=== PATIENT | male | born 1940 | race Caucasian/White ===

== ENCOUNTER 2019-05-06 08:59 | Outpatient (CLI) | payer MEDICARE, BC, SELFPAY ==
--- NOTE | 2019-05-06 09:37 | ECG_ITS ---
NAME OF STUDY: LEXISCAN SESTAMIBI STRESS TEST INDICATION: AFIB, PROCEDURE: At the baseline, the EKG revealed atrial fibrillation with a controlled ventricular response rate. Poor R wave progression. The baseline blood pressure was 144/103 mm Hg with a heart rate of 61 beats/min. Lexiscan was infused over a period of 20 seconds. A total of 0.4 milligrams of Lexiscan was infused. The stress phase was continued for a total of 5 minutes. Heart rate at the end of the stress phase was 66 with a blood pressure 158/102. The EKG at the peak infusion revealed no significant changes. Sestamibi was injected 20 seconds after the Lexiscan infusion. Blood pressure at the end of the recovery phase was 158/101 with a heart rate of 72 per minute. CONCLUSION: 1. No significant EKG changes with the LexiScan infusion 2. No LexiScan induced chest pain or cardiac arrhythmia 3. Normal blood pressure and heart rate response 4. Sestamibi/sestamibi perfusion scan pending; see separate report. Electronically Signed On 05-06-2019 19:04:51 COPYRIGHT MANAGER by Anival Salgado M.D. [id number]
--- NOTE | 2019-05-06 09:37 | NMCV_ITS ---
NM jose elias perf SPECT r/s* [id number] Martín Coburn Age: 78 Gender: M : 1940 Exam Date: 05/06/2019 10:03 Ordering Phys: Radha MonrealP XX Technologist: GWEN Ramesh Exam Location: [facility] Indications: A-fib STRESS TEST [facility] IMAGE PROTOCOL Rest/Stress 1 Lexiscan Day Radiopharmaceutical Dose (mCi) Administration Site Administered by Rest: Tc-99m 10.7 IV GWEN Ramesh Sestamibi Stress:Tc-99m 31.5 IV GWEN Ramesh Sestamibi Rest: 06-May-2019 60 Discovery 630 Stress: 06-May-2019 60 Discovery 630 0.4mg Lexiscan. Images obtained in supine and prone position. 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 FUNCTIONAL RESULTS (calculated via Gated SPECT) Stress Image LV EF (%): 72 Stress EDV (mL):67 TID: 0.93 Stress ESV (mL):19 Rest Image LV EF (%): 72 FUNCTIONAL FINDINGS: There is normal left ventricular systolic function. 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 Jailyn Vanegas MD (Electronically Signed) Final Date: 06 May 2019 14:44 S
[2019-05-06 09:40] VITALS: BMI 25.7
[2019-05-06] MEDS: regadenoson 0.4 Mg/5 ml Syringe IVP (11:12)
[2019-05-06 11:27] VITALS: BP 159/101; PULSE 78
--- NOTE | 2019-05-06 12:45 | USCV_ITS ---
Martín Coburn Age: 78 Gender: M : 1940 Exam Date: 05/06/2019 11:28 Ordering Phys: Radha Monreal TYPEWRITER ALIGNER XX Technologist: Ana Ling Exam Location: [facility] [place] Indication: AFIB BP: 149 / 93 HR: 73 Rhythm: Atrial fibrillation Technical Quality: Adequate MEASUREMENTS (Male / Female) Normal Values 2D ECHO LV Diastolic Diameter PLAX 4.4 cm 4.2 - 5.9 / 3.9 - 5.3 cm LV Systolic Diameter PLAX 2.4 cm LV Chamber Size 4.3 cm IVS Diastolic Thickness 1.0 cm 0.6 - 1.0 / 0.6 - 0.9 cm IVS Systolic Thickness 1.3 cm LVPW Diastolic Thickness 0.9 cm 0.6 - 1.0 / 0.6 - 0.9 cm LVPW Systolic Thickness 1.2 cm RV Chamber Size 4.2 cm LVOT Diameter 2.0 cm LV Ejection Fraction 2D Teich 77.3 % LV Ejection Fraction MOD 2C 65.8 % LV Ejection Fraction 2C AL 64.6 % LA Diameter 3.6 cm LA Width 3.7 cm LA Height 5.3 cm RA Width 5.1 cm RA Height 6.1 cm M-MODE LV Diastolic Diameter MM 5.0 cm 4.2 - 5.9 / 3.9 - 5.3 cm LV Systolic Diameter MM 2.8 cm LV Ejection Fraction MM Teich 75.5 % IVS Diastolic Thickness MM 0.4 cm 0.6 - 1.0 / 0.6 - 0.9 cm IVS Systolic Thickness MM 1.0 cm LVPW Diastolic Thickness MM 0.7 cm 0.6 - 1.0 / 0.6 - 0.9 cm LVPW Systolic Thickness MM 1.5 cm RV Diastolic Diameter MM 2.6 cm Aortic Annulus Diameter 3.0 cm LA Ao Ratio MM 1.2 MV E Point Septal Separation 0.1 cm DOPPLER AV Peak Velocity 147.0 cm/s LVOT Peak Velocity 79.0 cm/s AV Area Cont Eq vti 1.8 cm squared AV Area Cont Eq pk 1.7 cm squared MV E' Velocity 7.0 cm/s TR Peak Velocity 277.4 cm/s TR Peak Gradient 30.8 mmHg TR Mean Velocity 221.6 cm/s TR Mean Gradient 21.2 mmHg TR Velocity Time Integral 90.5 cm TV Peak E Velocity 72.0 cm/s Right Atrial Pressure 3.0 mmHg Pulmonary Artery Systolic Pressu 33.8 mmHg PV Peak Velocity 66.0 cm/s FINDINGS Left Ventricle Normal left ventricular cavity size. Normal left ventricular systolic function. No regional wall motion abnormalities. Left ventricular ejection fraction is estimated at 65 %. In the presence of atrial fibrillation diastolic function cannot be assessed accurately. Right Ventricle The right ventricle is normal in size and function. Right Atrium The right atrium is normal in size. Left Atrium The left atrium is normal in size. Mitral Valve Thickened mitral valve. No mitral valve stenosis. Mild-moderate mitral valve regurgitation. Aortic Valve Moderate aortic valve calcification. Mild aortic valve stenosis, mean gradient 4.2 mmHg, GUANACO 1.8 cm squared. Trace aortic valve regurgitation. Tricuspid Valve Moderate tricuspid valve regurgitation. Pulmonic Valve Mild pulmonary valve regurgitation. Pericardium Normal pericardium without effusion. Aorta Normal ascending aorta dimension. CONCLUSIONS 1-Normal left ventricular cavity size. Normal left ventricular systolic function. No regional wall motion abnormalities. Left ventricular ejection fraction is estimated at 65 %. In the presence of atrial fibrillation diastolic function cannot be assessed accurately. 2-Moderate aortic valve calcification. Mild aortic valve stenosis, mean gradient 4.2 mmHg, GUANACO 1.8 cm squared. Trace aortic valve regurgitation. 3-Thickened mitral valve. No mitral valve stenosis. Mild- moderate mitral valve regurgitation. 4-There is no pericardial effusion. 5-Pulmonary artery systolic pressure is within normal limits. 6-Right atrial pressure is around 5 mm of mercury. 7-There are no prior echocardiogram studies to compare. Jailyn Vanegas MD (Electronically Signed) Final Date: 06 May 2019 18:01 S
== END 2019-05-06 09:00 | disposition home or self-care (01) ==
LOC: CDL 09:05
PROVIDERS: Family Provider Nurse Practitioner Family; PCP Nurse Practitioner Family; Visit Provider Nurse Practitioner Family
DX: I48.91 Unspecified atrial fibrillation (principal)
CPT/HCPCS: 78452; 93017; 93306; A9500; J2785

== ENCOUNTER 2021-07-14 12:58 | Outpatient (CLI) | payer MEDICARE, OTHER, SELFPAY ==
--- NOTE | 2021-07-14 13:56 | CT_ITS ---
WS: [id number] CT HEAD NONCONTRAST HISTORY: LEFT FACIAL NUMBNESS TECHNIQUE: Contiguous axial imaging performed through the brain in 2.5 mm imaging. Bone and soft tiss ue windows. Sagittal and coronal reformats reviewed. All CT scans at [facility] use at least one of these dose optimization techniques: automated exposure control; mA and/or kV adjustment per pa tient size (includes targeted exams where dose is matched to clinical indication); or iterative recon struction. DLP: 1042.98 mGy.cm COMPARISON: None available. No acute intracranial hemorrhage, midline shift or mass effect. Mild bilateral cerebral and cerebellar atrophy. Mild small vessel ischemic changes. No prior infarct. Ventricles: Normal size with no hydrocephalus. No inferior displacement of cerebellar tonsils. Heavy calcification within the intracranial carotid a rteries. Paranasal sinuses: As visualized are clear. Mastoid air cells: Well pneumatized. Calvarium and scalp: No skull fracture. Lucencies in the occipital bone without destruction of the co rtex. No change since 12/22/2018. CT/CT head wo con* [id number] IMPRESSION: 1. No acute intracranial hemorrhage or edema. 2. Mild cerebral and cerebellar atrophy with small vessel ischemic disease.
== END 2021-07-14 12:59 | disposition home or self-care (01) ==
LOC: CT 13:00
PROVIDERS: PCP Nurse Practitioner Family; Visit Provider Nurse Practitioner Family
DX: R20.0 Anesthesia of skin (principal); G31.9 Degenerative disease of nervous system, unspecified
CPT/HCPCS: 70450

== ENCOUNTER → 2021-07-25 10:53 | Outpatient (BNVA) | payer MEDICARE, OTHER, SELFPAY | PROVIDERS: PCP Nurse Practitioner Family; Visit Provider Internal Medicine Cardiovascular Disease | DX: R94.39 Abnormal result of other cardiovascular function study (principal); I48.91 Unspecified atrial fibrillation; E78.2 Mixed hyperlipidemia; I10 Essential (primary) hypertension; Z79.82 Long term (current) use of aspirin | CPT/HCPCS: 99214 ==

== ENCOUNTER → 2022-01-23 09:50 | Outpatient (BNVA) | payer MEDICARE, OTHER, SELFPAY | PROVIDERS: PCP Nurse Practitioner Family; Visit Provider Internal Medicine Cardiovascular Disease | DX: I48.91 Unspecified atrial fibrillation (principal); R94.39 Abnormal result of other cardiovascular function study; E78.2 Mixed hyperlipidemia; I10 Essential (primary) hypertension; I35.0 Nonrheumatic aortic (valve) stenosis | CPT/HCPCS: 99213; 99214 ==

== ENCOUNTER → 2022-07-31 09:47 | Outpatient (BNVA) | payer MEDICARE, OTHER, SELFPAY | PROVIDERS: PCP Nurse Practitioner Family; Visit Provider Internal Medicine Cardiovascular Disease | DX: I35.0 Nonrheumatic aortic (valve) stenosis (principal); R94.39 Abnormal result of other cardiovascular function study; E78.2 Mixed hyperlipidemia; I10 Essential (primary) hypertension; I48.91 Unspecified atrial fibrillation; Z79.82 Long term (current) use of aspirin | CPT/HCPCS: 99214 ==

== ENCOUNTER → 2022-08-28 10:35 | Outpatient (BNVA) | payer MEDICARE, OTHER, SELFPAY | PROVIDERS: PCP Nurse Practitioner Family; Visit Provider Nurse Practitioner Family | DX: S50.912A Unspecified superficial injury of left forearm, initial encounter (principal); X58.XXXA Exposure to other specified factors, initial encounter; L57.0 Actinic keratosis; L82.1 Other seborrheic keratosis; L85.3 Xerosis cutis; L82.0 Inflamed seborrheic keratosis; D22.5 Melanocytic nevi of trunk; L81.4 Other melanin hyperpigmentation | CPT/HCPCS: 17000; 17003; 99213 ==

== ENCOUNTER → 2023-02-19 09:41 | Outpatient (BNVA) | payer MEDICARE, OTHER, SELFPAY | PROVIDERS: PCP Nurse Practitioner Family; Visit Provider Internal Medicine Cardiovascular Disease | DX: I35.0 Nonrheumatic aortic (valve) stenosis (principal); R94.39 Abnormal result of other cardiovascular function study; E78.2 Mixed hyperlipidemia; I10 Essential (primary) hypertension; I48.91 Unspecified atrial fibrillation | CPT/HCPCS: 99214 ==

== ENCOUNTER → 2023-02-27 09:33 | Outpatient (BNVA) | payer MEDICARE, OTHER, SELFPAY | PROVIDERS: PCP Nurse Practitioner Family; Visit Provider Specialist | DX: M65.322 Trigger finger, left index finger; M16.11 Unilateral primary osteoarthritis, right hip | CPT/HCPCS: 73130; 73502; 99205 ==

== ENCOUNTER → 2023-03-05 12:59 | Outpatient (BNVA) | payer MEDICARE, OTHER, SELFPAY | PROVIDERS: PCP Nurse Practitioner Family; Visit Provider Nurse Practitioner Family | DX: L57.0 Actinic keratosis (principal); L82.1 Other seborrheic keratosis; L85.3 Xerosis cutis; L82.0 Inflamed seborrheic keratosis; L81.4 Other melanin hyperpigmentation; D22.5 Melanocytic nevi of trunk; L57.8 Other skin changes due to chronic exposure to nonionizing radiation; L71.8 Other rosacea | CPT/HCPCS: 17000; 17110; 99214 ==

== ENCOUNTER 2023-03-08 05:41 | Day surgery (SDC) | payer MEDICARE, OTHER, SELFPAY ==
[2023-03-08] VITALS (10 sets, daily range): BP systolic 98–179; BP diastolic 56–111; PULSE 53–68; RESP 14–26; TEMP 36.2–36.3; O2SAT 95–100; BMI 23.6
[2023-03-08] MEDS: gabapentin 300 mg Capsule PO (06:25)
[2023-03-08] MEDS: CELEcoxib 200 mg Capsule 400 MG PO (06:25)
[2023-03-08] MEDS: acetaminophen 1,000 MG/100 ML PIGGYBACK 400 MG IV (06:25)
[2023-03-08] MEDS: sodium chloride 0.9% 1,000 ML 30 ML IV (06:25)
--- NOTE | 2023-03-08 06:29 | ANES.PREANE2 ---
Pre-Anesthetic Assessment Height/Weight: Height 1.68 m Weight 66.224 kg Temp Pulse Resp BP Pulse Ox O2 Del Method 97.2 F L 57 L 18 179/111 98 Room Air 03/08/23 06:03 03/08/23 06:03 03/08/23 06:03 03/08/23 06:03 03/08/23 06:03 03/08/23 06:04 Operation Date: 03/08/23 07:00 Proposed Procedures p Left Index Trigger Finger Release(Left) - Carrie Blas MD Familial anesthetic complications: none Was Beta Nai taken within 24 hours: N/A Was Clonidine taken within 24 hours: N/A Last intake: Intake Last Liquid Date 03/08/23 Last Liquid Time 21:00 Last Solid Date 03/07/23 Last Solid Time 16:00 Social No alcohol and No tobacco Exam alert, oriented x 3, clear to auscultation bilaterally and regular rate & rhythm Airway Mallampati: Class II Dentition: full CV/HEM Atrial Fibrillation and Hypertension AV stenosis mild Anesthetic Plan ASA status: 3 Anesthesia: General Risk of > 500 ml blood loss (7ml/kg in children): No Medications/Allergies Home Medications Medication Instructions Recorded Confirmed Last Taken Type aspirin 325 mg tablet 325 mg PO DAILY 05/19/19 03/07/23 03/07/23 History multivitamin 1 tab PO DAILY 05/19/19 03/07/23 03/07/23 History losartan 100 1 tab PO DAILY 07/21/20 03/07/23 03/07/23 History mg-hydrochlorothiazide 25 mg tablet tamsulosin 0.4 mg capsule (Flomax) 0.4 mg PO .every other day 07/21/20 03/07/23 03/07/23 History calcium phosphate-vitamin D3 600 1 tab PO 1XD 01/29/22 03/07/23 03/07/23 History mg-125 unit tablet triamcinolone acetonide 0.1 % 1 applic topical BID #80 grams 01/29/22 03/07/23 03/06/23 Rx topical ointment Allergies Allergy/AdvReac Type Severity Reaction Status Date / Time No Known Allergies Allergy Verified 03/07/23 11:02 Current Medications Generic Name Dose Route Start Last Admin Trade Name Freq PRN Reason Stop Dose Admin Celecoxib 400 mg 03/08/23 05:50 03/08/23 06:25 Celecoxib 200 Mg Capsule PO 03/08/23 05:51 400 mg ONCE ONE Administration Gabapentin 300 mg 03/08/23 05:50 03/08/23 06:25 Gabapentin 300 Mg Capsule PO 03/08/23 05:51 300 mg ONCE ONE Administration Acetaminophen 1,000 mg in 100 mls @ 400 mls/hr 03/08/23 05:50 03/08/23 06:25 Acetaminophen IV 03/08/23 06:04 400 mls/hr ONCE ONE Administration Sodium Chloride 1,000 mls @ 30 mls/hr 03/08/23 06:00 03/08/23 06:25 Sodium Chloride 0.9% IV 03/09/23 05:59 30 mls/hr .Q24H DEBORAH Administration PFSH Anesthesia Medical History Abnormal nuclear stress test Atrial fibrillation by electrocardiography The patient has decided not to take the oral anticoagulation. He was prescribed Eliquis but did not take it. Made him feel very tired and weak Benign essential HTN Dysphagia GERD (gastroesophageal reflux disease) Mixed hyperlipidemia Parotitis Rosacea Seborrheic keratosis Vertigo Surgical History History of appendectomy History of cataract extraction Hx of cholecystectomy Hx of tonsillectomy Family History Brother CAD (coronary artery disease) Mother CAD (coronary artery disease) Sister Cancer Diabetes Denies family history of Clotting disorder Dementia Chronic kidney disease (CKD) Suicide Anesthesia complication Bleeding disorder Lung disease Stroke Social History Smoking and tobacco/nicotine status: never used tobacco/nicotine Alcohol intake: never Substance/Drug Use: never Data Anesthesia Cardiac Studies: Echocardiogram Ultrasound 05/06/19 Sestamibi Stress Test (Cardiology) 05/06/19
--- NOTE | 2023-03-08 06:35 | ECG_ITS ---
[facility] Test Date: 2023-03-08 Pat Name: Martín Coburn Department: Room: Gender: Male Director Of Planning: : 1940 Requested By: Caryn Duke Order Number: [id number] Aguilar MD: Melia Burnett M.D. Measurements Intervals Carmichael Rate: 47 P: 0 OR: 0 QRS: -52 QRSD: 102 T: 7 QT: 419 QTc: 371 Interpretive Statements ATRIAL FIBRILLATION WITH SLOW VENTRICULAR RESPONSE LEFT ANTERIOR FASCICULAR BLOCK [QRS AXIS <= -45, QR IN I, RS IN II] Compared to ECG 12/22/2018 11:12:59 Left anterior fascicular block now present Left-axis deviation no longer present Intraventricular conduction delay no longer present Electronically Signed On 03-09-2023 6:15:18 BEAD TRIMMER by Melia Burnett M.D. [id number] [email or web address]
--- NOTE | 2023-03-08 06:56 | P.HPUD_ITS ---
Surgery/Procedure H&P Update DATE OF PROCEDURE: March 08, 2023 DATE H&P PERFORMED: 02/27/23 H&P UPDATE INFORMATION: I have reviewed H&P completed within last 30 days, I have examined patient prior to procedure, No changes to prior documentation and H&P is in [facility] [place] EMR on date indicated PLANNED PROCEDURE: Operation Date: 03/08/23 07:00 Proposed Procedures p Left Index Trigger Finger Release(Left) - Carrie Blas MD Related Problem List Diagnoses (1) Trigger index finger of left hand:
[2023-03-08] MEDS: ceFAZolin 2,000 MG in sodium chloride 0.9% (plus) 50 ML 100 MG IV (07:00)
[2023-03-08 07:13] LABS: Anion Gap 13.4 (5-19); Blood Urea Nitrogen 25 mg/dL (8-23); Calcium 9.2 mg/dL (8.5-10.5); Carbon Dioxide 26 mmol/L (22-29); Chloride 104 mmol/L (98-107); Glucose 98 mg/dL (65-115); Osmolality Calculated 294 mOsm/kg (285-295); Potassium 3.4 mmol/L (3.5-5.1); Sodium 140 mmol/L (136-145)
[2023-03-08] MEDS: BUPivacaine 0.5% INJ 30 mL INJECTION (07:34)
--- NOTE | 2023-03-08 08:02 | PM.OP ---
Operative Report Date of procedure: March 08, 2023 Pre-op diagnosis: Left index trigger finger Post-op diagnosis: Left index trigger finger Post-op findings: Significant inflammation and very thickened A1 leighton Procedure done: Release left index trigger finger Specimens removed/disposition: None Surgeon: Carrie Blas MD Belt Polisher: None Anesthesia: General (Per LMA, ASA 3) Estimated blood loss (mL): 1 Tourniquet time (min): 15 (At 250 mmHg) IV fluids (mL): 300 Urine output (mL): 0 (No Munoz) Complications: None Condition: stable Disposition: PACU (Then return to same-day surgery for discharge to home) Brief History: This 82-year-old gentleman presented to my office for osteoarthritis of the left hip and also trigger finger of the left index finger. After evaluation in the office, he wished to proceed with left trigger finger release. Risks and complications were discussed with him in the office. He noted that his finger locked in place multiple times per day. Consents were signed and questions were answered while the patient was in the office. Procedure: Patient was brought to the operating theater. He was placed on the operating room table. Patient was administered general anesthetic per LMA, ASA 3 uneventfully. Patient tolerated it well. Ancef 2 g was administered prophylactically preoperatively. A tourniquet was placed high on the arm, and following exsanguination, the tourniquet was elevated to 250 mmHg for a total tourniquet time of 15 minutes. Surgical pause was performed prior to commencement of the surgical procedure. At the time of the surgical pause we identified the site and side of surgery. We also identified the patient's identity and appropriate administration of IV antibiotics. Following the surgical pause, an incision was made along the distal palmar crease beneath the index finger with care being taken to protect neurovascular structures. Dissection continued through the skin to the subcutaneous tissues using a scalpel. Digital nerve was identified radially. Blunt dissection was then utilized to spread soft tissues and allow access to the A1 leighton. It was then incised longitudinally and sharply using a knife. This was accomplished without difficulty and atraumatically. Once the A1 leighton was released, tendons were brought up out of the wound and evaluated. There were no gross masses on the tendons, but there was abrasion to the tendons from the very tight A1 leighton. Tendons were returned to normal position. We then irrigated the wound and subsequently closed it with 3-0 nylon with an interrupted mattress type suture. Following closure of the wound, the wound was injected with bupivacaine plain into the subcutaneous tissues as a local anesthetic, and this was also used locally for irrigation. Sterile dressing was then placed consisting of Dermabond, OpSite, fluffed fluffs, sterile soft roll, and an Damián wrap. The patient was returned to recovery in satisfactory condition. He will be discharged home to follow-up with me in the office. There were no complications and no specimens. Related Problem List Diagnoses (1) Trigger index finger of left hand:
--- NOTE | 2023-03-08 13:37 | ANE.PACU2 ---
Inpatient post-anesthesia follow up: Airway intact: Yes Vital signs: Temperature 97.3 F Pulse Rate 61 Respiratory Rate 16 Blood Pressure 140/93 Pulse Oximetry 99 Oxygen Delivery Me thod Room Air Oxygen Flow Rate 6 Fraction of Inspir ed Oxygen Hydration adequate: Yes Nausea and vomiting: No Pain level: 1 Mental status: Baseline
== END 2023-03-08 09:00 | disposition home or self-care (01) ==
PROVIDERS: Anesthesiology; PCP Nurse Practitioner Family; Visit Provider Specialist
PROC: (CPT 26055; principal; 2023-03-08 07:00)
DX: M65.322 Trigger finger, left index finger (principal); I48.91 Unspecified atrial fibrillation; I10 Essential (primary) hypertension; K21.9 Gastro-esophageal reflux disease without esophagitis; E78.2 Mixed hyperlipidemia; Z79.82 Long term (current) use of aspirin
CPT/HCPCS: 26055; 80048; 93005; J0131; J0461; J0690; J1100; J2405; J2704; J3010; J3490; J7030

== ENCOUNTER → 2023-03-22 09:31 | Outpatient (BNVA) | payer MEDICARE, OTHER, SELFPAY | PROVIDERS: PCP Nurse Practitioner Family; Visit Provider Nurse Practitioner | DX: M65.321 Trigger finger, right index finger (principal) | CPT/HCPCS: 99024 ==

== ENCOUNTER → 2023-08-20 10:03 | Outpatient (BNVA) | payer MEDICARE, OTHER, SELFPAY | PROVIDERS: PCP Nurse Practitioner Family; Visit Provider Internal Medicine Cardiovascular Disease | DX: I48.91 Unspecified atrial fibrillation (principal); I35.0 Nonrheumatic aortic (valve) stenosis; I10 Essential (primary) hypertension; E78.2 Mixed hyperlipidemia; R94.39 Abnormal result of other cardiovascular function study | CPT/HCPCS: 99214 ==

== ENCOUNTER 2023-09-03 13:44 | Outpatient (CLI) | payer MEDICARE, SELFPAY ==
--- NOTE | 2023-09-03 14:00 | USCV_ITS ---
Martín Coburn Age: 82 Gender: M : 1940 Exam Date: 09/03/2023 14:03 Ordering Phys: Anival Salgado MD ([email or web address]) Technologist: EMMA Exam Location: [facility] [place] Indication: AVS BP: 120 / 77 HR: 66 Rhythm: Sinus Technical Quality: Adequate MEASUREMENTS (Male / Female) Normal Values 2D ECHO LV Diastolic Diameter PLAX 3.6 cm 4.2 - 5.9 / 3.9 - 5.3 cm IVS Diastolic Thickness 1.4 cm 0.6 - 1.0 / 0.6 - 0.9 cm IVS Systolic Thickness 1.7 cm LVPW Diastolic Thickness 1.9 cm 0.6 - 1.0 / 0.6 - 0.9 cm LVPW Systolic Thickness 1.9 cm LVOT Diameter 2.0 cm LV Ejection Fraction 2D Teich 64.6 % LV Ejection Fraction MOD 2C 55.0 % LV Ejection Fraction 2C AL 56.1 % LA Diameter 3.7 cm RA Systolic Volume 4C AL 62.9 ml RA Systolic Volume 4C MOD 57.0 ml LA Sys Volume AL 41.3 cm cubed LA Sys Volume Index AL 23.1 cm cubed/m squared Aorta at Sinotubular Diameter 2.1 cm IVC Diameter 1.4 cm M-MODE LA Ao Ratio MM 1.2 AV Cusp Separation MM 1.1 cm DOPPLER AV Peak Velocity 220.0 cm/s LVOT Peak Velocity 86.0 cm/s AV Area Cont Eq vti 1.1 cm squared AV Area Cont Eq pk 1.2 cm squared MV Peak Velocity 116.0 cm/s MV Area PHT 5.3 cm squared Mitral E to A Ratio 291.0 TV Peak Velocity 267.5 cm/s TR Peak Velocity 317.5 cm/s TR Peak Gradient 40.3 mmHg TR Mean Velocity 282.0 cm/s TR Mean Gradient 33.3 mmHg TR Velocity Time Integral 115.6 cm TV Peak E Velocity 44.0 cm/s Right Atrial Pressure 3.0 mmHg Pulmonary Artery Systolic Pressu 43.3 mmHg PV Peak Velocity 91.0 cm/s RV Ejection Time 0.3 s FINDINGS Left Ventricle Normal left ventricular size and systolic function, EF 56% . No regional wall motion abnormalities. Right Ventricle Normal right ventricular size and systolic function. Right Atrium Mildly increased right atrial size. Left Atrium Mildly increased left atrial size. Mitral Valve Mild to moderate mitral valve regurgitation. Aortic Valve Thickened aortic valve. Rested aortic valve mobility Tricuspid Valve Trace to mild tricuspid valve regurgitation. Estimated pulmonary artery peak systolic pressure 44 mmHg Pulmonic Valve Trace pulmonary valve regurgitation. Pericardium Normal pericardium without effusion. Aorta Normal ascending aorta dimension. IVC The inferior vena cava appears normal. CONCLUSIONS Normal left ventricular size and systolic function, EF 56% . No regional wall motion abnormalities. Biatrial enlargement Features of aortic valve sclerosis Trace to mild tricuspid valve regurgitation. Mild pulmonary hypertension, estimated pulmonary artery peak systolic pressure 44 mmHg. Mild to moderate mitral valve regurgitation. There is no pericardial effusion. There are no intracardiac masses. Compared to the study from 05/06/2019, there is development of pulmonary hypertension Dr Anival Salgado MD FACC (Electronically Signed) Final Date: 05 Sep 2023 07:30 S
== END 2023-09-03 13:45 | disposition home or self-care (01) ==
PROVIDERS: PCP Nurse Practitioner Family; Visit Provider Internal Medicine Cardiovascular Disease
DX: I35.0 Nonrheumatic aortic (valve) stenosis (principal); I51.7 Cardiomegaly; I27.20 Pulmonary hypertension, unspecified
CPT/HCPCS: 93306

== ENCOUNTER → 2024-02-25 14:55 | Outpatient (BNVA) | payer MEDICARE, OTHER, SELFPAY | PROVIDERS: PCP Nurse Practitioner Family; Visit Provider Nurse Practitioner Family | DX: I48.91 Unspecified atrial fibrillation (principal); I49.8 Other specified cardiac arrhythmias; I44.4 Left anterior fascicular block | CPT/HCPCS: 36415; 84443; 93005; 99213 ==

== ENCOUNTER → 2024-02-27 11:04 | Outpatient (BNVA) | payer MEDICARE, OTHER, SELFPAY | PROVIDERS: PCP Nurse Practitioner Family; Visit Provider Internal Medicine Cardiovascular Disease | DX: I48.91 Unspecified atrial fibrillation (principal); I10 Essential (primary) hypertension; E78.2 Mixed hyperlipidemia; I35.0 Nonrheumatic aortic (valve) stenosis; R94.39 Abnormal result of other cardiovascular function study; I49.8 Other specified cardiac arrhythmias | CPT/HCPCS: 99214 ==

== ENCOUNTER 2024-04-18 14:16 | Emergency (ER) | payer MEDICARE, OTHER, SELFPAY ==
[2024-04-18 14:31] VITALS: BP 145/83; PULSE 85; RESP 16; TEMP 36.3; O2SAT 100; BMI 23.8
[2024-04-18 15:28] LABS: Bilirubin Urine Negative (Negative); Blood Urine 3+ (Negative); Glucose Urine UA Negative (Normal); Ketones Urine Trace (Negative); Leukocyte Esterase Urine 1+ (Negative); Nitrate Urine Negative (Negative); Protein Urine 1+ (Negative); Specific Gravity, Urine 1.018 (1.005-1.030); Urine Appearance Cloudy (CLEAR); pH Urine 7.5 (5-7)
[2024-04-18 15:32] LABS: Add Urine Microscopic? YES; Bacteria Urine None Seen /hpf; Hyaline Casts Urine 5.77 /lpf; RBC Urine >100 /hpf (0-2); Squamous Epithelial Cell Urine 0-5 /hpf (0-5)
[2024-04-18 15:49] LABS: UA Slide Review UA Slide Review Perf; Urine Color Orange (Yellow)
[2024-04-18 15:51] LABS: Add Urine Culture? Yes
[2024-04-18 16:30] LABS: Basophils # 0.1 10^3/uL (0.0-0.1); Basophils % 0.8 %; Eosinophils # 0.1 10^3/uL (0.0-0.8); Eosinophils % 1.4 %; Lymphocytes # 1.6 10^3/uL (0.8-4.8); Lymphocytes % 23.5 %; Mean Corpuscular HGB Conc 33.7 g/dL (30-55); Mean Corpuscular Volume 89.1 fl (82-101); Mean Platelet Volume 10.6 fL (7.4-10.4); Monocytes # 0.5 10^3/uL (0.2-0.9); Monocytes % 7.7 %; Neutrophils % 66.3 %; Nucleated Red Blood Cells % 0 %; Platelet Count 142 10^3/cmm (157-399); Red Blood Count 5.16 10^6/uL (3.85-5.65); Red Cell Distribution Width 13.2 % (12.1-15.1); White Blood Count 6.63 10^3/uL (3.29-11.43)
[2024-04-18 16:49] LABS: Alanine Aminotransferase 24 U/L (0-41); Albumin Level 4.2 g/dL (3.5-5.2); Alkaline Phosphatase 76 U/L (40-130); Anion Gap 16.1 (5-19); Aspartate Amino Transferase 31 U/L (0-40); Blood Urea Nitrogen 16 mg/dL (8-23); Calcium 9.7 mg/dL (8.5-10.5); Carbon Dioxide 28 mmol/L (22-29); Chloride 101 mmol/L (98-107); Creatinine Clr Calc Pharmacy 57.2927; Globulin 2.9 g/dL (1.3-4.6); Glucose 107 mg/dL (65-115); Osmolality Calculated 294 mOsm/kg (285-295); Potassium 4.1 mmol/L (3.5-5.1); Sodium 141 mmol/L (136-145); Total Bilirubin 0.9 mg/dL (0.15-1.2); Total Protein 7.1 g/dL (6.6-8.7)
[2024-04-18 16:58] VITALS: BP 152/96; PULSE 69; RESP 18; O2SAT 95
--- NOTE | 2024-04-18 17:15 | ED_ITS ---
HPI - Male Genitourinary 2 General: Chief complaint: Urogenital-Male Stated complaint: blood in urine , has pace maker / b/p problems Time Seen by Provider: 04/18/24 16:35 History of Present Illness: Patient is an 83-year-old man that presents to the emergency department with complaints of hematuria. Denies dysuria or urinary retention. Denies increased frequency or urgency. Patient has a history of prostate cancer in 2004. He underwent seed radiation. His PSAs decline and his urologist signed off on him about 7 years ago. Patient no longer sees anybody for urology. Patient recently had a pacemaker placement and during that procedure developed atrial fibrillation. Patient has been started on Xarelto. Related Data Home Medications Medication Instructions Recorded Confirmed multivitamin 1 tab PO DAILY 05/19/19 02/25/24 losartan 100 1 tab PO DAILY 07/21/20 02/25/24 mg-hydrochlorothiazide 25 mg tablet tamsulosin 0.4 mg capsule (Flomax) 0.4 mg PO .every other day 07/21/20 02/25/24 calcium phosphate-vitamin D3 600 1 tab PO 1XD 01/29/22 02/25/24 mg-125 unit tablet aspirin 81 mg tablet,delayed 81 mg PO DAILY 08/20/23 02/25/24 release Previous Rx's Medication Instructions Recorded triamcinolone acetonide 0.1 % 1 applic topical BID #80 grams 01/29/22 topical ointment amlodipine 2.5 mg tablet 2.5 mg PO DAILY HTN 30 days #90 02/25/24 tabs Allergies Allergy/AdvReac Type Severity Reaction Status Date / Time No Known Allergies Allergy Verified 02/27/24 11:14 Review of Systems 2 General: Reports: 10 or more systems reviewed and unremarkable except in HPI and below PFSH ED 2 PFSH: Medical History Rosacea Seborrheic keratosis Parotitis Abnormal nuclear stress test Mixed hyperlipidemia Benign essential HTN Atrial fibrillation by electrocardiography The patient has decided not to take the oral anticoagulation. He was prescribed Eliquis but did not take it. Made him feel very tired and weak Vertigo GERD (gastroesophageal reflux disease) Dysphagia Surgical History History of appendectomy History of cataract extraction Hx of tonsillectomy Hx of cholecystectomy Family History Brother CAD (coronary artery disease) Mother CAD (coronary artery disease) Sister Cancer Diabetes Denies family history of Clotting disorder Dementia Chronic kidney disease (CKD) Suicide Anesthesia complication Bleeding disorder Lung disease Stroke Social History Smoking and tobacco/nicotine status: never used tobacco/nicotine Alcohol intake: never Substance/Drug Use: never Physical Exam 2 Const: COMMON NORMALS: no acute distress, patient oriented x3 and alert G ENERAL APPEARANCE: cooperative ORIENTATION/CONSCIOUSNESS: Yes awake, Yes oriented to person, Yes oriented to place and Yes oriented to time HENMT: COMMON NORMALS: normocephalic and atraumatic HEAD & SCALP: n ormocephalic and atraumatic FACE & SINUS: normal facial exam Eye: COMMON NORMALS: Equal, round and reactive pupils present, EOMs intact bilaterally, conjunctivae normal and no scleral icterus GENERAL EYE: a ppearance normal, both eyes and all related structures ALIGNMENT: Yes alignment normal PERIORBITAL: periorbital findings normal CONJUNCTIVA: Yes conjunctivae normal PUPIL: Yes Equal, round and reactive pupils present Neck/C-Spine: COMMON NORMALS: full ROM GENERAL: Yes normal visual inspection Chest: COMMONS NORMALS: normal inspection of the chest Breast/axilla inspection: Yes no chest deformity, asymmetry, normal contours, no nodules, masses, tenderness Resp: COMMON NORMALS: normal respiratory effort, No retractions and No use of accessory muscles EFFORT & INSPECTION: Yes able to speak in complete sentences and Yes symmetric chest movement Cardio: COMMON NORMALS: regular rate, regular rhythm and Peripheral pulses 2+ throughout RATE: regular rate RHYTHM: regular rhythm PERIPHERAL PULSES: Peripheral pulses 2+ throughout GI: COMMON NORMALS: Normal to inspection, nondistended, normoactive bowel sounds present INSPECTION: Yes normal to inspection RECTAL EXAM: Yes deferred Extremity: COMMON NORMALS: normal to inspection GENERAL: Yes normal exam except as noted Neuro: COMMON NORMALS: patient oriented x3 SENSORIUM/ORIENTATION: Yes alert, Yes oriented to person, Yes oriented to place and Yes oriented to time CRANIAL NERVES: Yes CN normal except as noted Psych: COMMON NORMALS: mental status grossly normal, Normal thought process present, cooperative, activity/motor behavior normal, denies homicidal ideation and denies suicidal ideation THOUGHT PROCESS: Normal thought process present Course 2 Vital Signs: Vital signs: Vital Signs Temperature 97.4 F L 04/18/24 14:31 Pulse Rate 69 04/18/24 16:58 Respiratory Rate 18 04/18/24 16:58 Blood Pressure 152/96 04/18/24 16:58 Pulse Oximetry 95 04/18/24 16:58 Oxygen Delivery Me thod Room Air 04/18/24 16:58 MDM - Male Medical Decision Making Patient arrived in the emergency department today with complaint of hematuria. Patient denied any urinary urgency, retention, burning or dysuria. He believes his hematuria is due to recently starting Xarelto. Patient underwent a urinalysis which revealed 1+ leukoesterase but no bacteria or nitrates. Neck he does have 10-20 white blood cells and 3+. I have offered diagnostic evaluation but patient does not desire that at this time. He has a history of prostate cancer and so I think urology follow-up is warranted. Unfortunately we do not have urology in the area. We are going to have outpatient follow-up with Dr. Roberto Carlos De Los Santos of [facility] He does not recommend antibiotics. He does recommend holding the Xarelto until urine clears. Dr. De Los Santos's office will reach out to the patient on Saturday to get an appointment set up. No further diagnostics are warranted. Reviewed case with Dr. Valles who is in agreement Lab Data 04/18/24 16:09 04/18/24 16:09 Laboratory Results WBC 6.63 10^3/uL (3.29-11.43) 04/18/24 16:09 RBC 5.16 10^6/uL (3.85-5.65) 04/18/24 16:09 Hgb 15.50 g/dL (11.27-16.99) 04/18/24 16:09 Hct 46.0 % (37-53) 04/18/24 16:09 MCV 89.1 fl (82-101) 04/18/24 16:09 MCH 30.0 pg (27-33) 04/18/24 16:09 MCHC 33.7 g/dL (30-55) 04/18/24 16:09 RDW 13.2 % (12.1-15.1) 04/18/24 16:09 Plt Count 142 10^3/cmm (157-399) L 04/18/24 16:09 MPV 10.6 fL (7.4-10.4) H 04/18/24 16:09 Neut % (Auto) 66.3 % 04/18/24 16:09 Lymph % (Auto) 23.5 % 04/18/24 16:09 [place] % (Auto) 7.7 % 04/18/24 16:09 Eos % (Auto) 1.4 % 04/18/24 16:09 Baso % (Auto) 0.8 % 04/18/24 16:09 Neut # (Auto) 4.40 10^3/uL (1.8-7.7) 04/18/24 16:09 Lymph # (Auto) 1.6 10^3/uL (0.8-4.8) 04/18/24 16:09 [place] # (Auto) 0.5 10^3/uL (0.2-0.9) 04/18/24 16:09 Eos # (Auto) 0.1 10^3/uL (0.0-0.8) 04/18/24 16:09 Baso # (Auto) 0.1 10^3/uL (0.0-0.1) 04/18/24 16:09 Nucleated RBC % (auto) 0 % 04/18/24 16:09 Nucleated RBCs # 0.0 /100WBC 04/18/24 16:09 Sodium 141 mmol/L (136-145) 04/18/24 16:09 Potassium 4.1 mmol/L (3.5-5.1) 04/18/24 16:09 Chloride 101 mmol/L (98-107) 04/18/24 16:09 Carbon Dioxide 28 mmol/L (22-29) 04/18/24 16:09 Anion Gap 16.1 (5-19) 04/18/24 16:09 BUN 16 mg/dL (8-23) 04/18/24 16:09 Creatinine 0.9 mg/dL (0.7-1.2) 04/18/24 16:09 GFR Calculation Not Reportable 04/18/24 16:09 Glucose 107 mg/dL (65-115) 04/18/24 16:09 Calculated Osmolality 294 mOsm/kg (285-295) 04/18/24 16:09 Calcium 9.7 mg/dL (8.5-10.5) 04/18/24 16:09 Total Bilirubin 0.9 mg/dL (0.15-1.2) 04/18/24 16:09 AST 31 U/L (0-40) 04/18/24 16:09 ALT 24 U/L (0-41) 04/18/24 16:09 Alkaline Phosphatase 76 U/L (40-130) 04/18/24 16:09 Total Protein 7.1 g/dL (6.6-8.7) 04/18/24 16:09 Albumin 4.2 g/dL (3.5-5.2) 04/18/24 16:09 Globulin 2.9 g/dL (1.3-4.6) 04/18/24 16:09 Urine Color [place] (Yellow) A 04/18/24 14:38 Urine Appearance Cloudy (CLEAR) A 04/18/24 14:38 Urine pH 7.5 (5-7) 04/18/24 14:38 Ur Specific [place] 1.018 (1.005-1.030) 04/18/24 14:38 Urine Protein 1+ (Negative) A 04/18/24 14:38 Urine Glucose (UA) Negative (Normal) 04/18/24 14:38 Urine Ketones Trace (Negative) 04/18/24 14:38 Urine Blood 3+ (Negative) A 04/18/24 14:38 Urine Nitrate Negative (Negative) 04/18/24 14:38 Urine Bilirubin Negative (Negative) 04/18/24 14:38 Urine Urobilinogen 1.0 mg/dL (Negative) 04/18/24 14:38 Ur Leukocyte Esterase 1+ (Negative) A 04/18/24 14:38 Urine RBC >100 /hpf (0-2) H 04/18/24 14:38 Urine WBC 11-20 /hpf (0-5) H 04/18/24 14:38 Ur Squamous Epith Cells 0-5 /hpf (0-5) 04/18/24 14:38 Amorphous Sediment Not Reportable 04/18/24 14:38 Urine Bacteria None seen /hpf (NONE) 04/18/24 14:38 Hyaline Casts 5.77 /lpf 04/18/24 14:38 No radiology studies performed this visit Discharge Plan Discharge Patient Disposition: Home Clinical Impression: Hematuria, History of prostate cancer Condition: Stable Prescriptions: No Action multivitamin Tablet 1 tab PO DAILY tamsulosin [Flomax] 0.4 mg capsule 0.4 mg PO .every other day losartan-hydrochlorothiazide 100-25 mg tablet 1 tab PO DAILY calcium phosphate-vitamin D3 600-125 mg-unit tablet 1 tab PO 1XD triamcinolone acetonide 0.1 % ointment 1 applic topical BID Qty: 80 0RF Rx Instructions: apply to affected area no more than 2 weeks per month. not for face aspirin 81 mg tablet,delayed release (DR/EC) 81 mg PO DAILY amlodipine 2.5 mg tablet 2.5 mg PO DAILY 30 Days Qty: 90 3RF Discharge Orders: Discharge ED (Routine); Ordered 04/18/24 Ordered By: Deneen Delgado Referrals: Radha Monreal FNP [Primary Care Provider] - Roberto Carlos De Los Santos MD [Referring] - (Hematuria, history of prostate cancer) Discharge Diet: Advance as tolerated Discharge Activity: Resume usual activity Patient Instructions: Hematuria - Male, Opioid Safety, Pain Management Activity Restrictions/Additional Instructions: Please hold your Xarelto until your urine is clear. Dr. De Los Santos does not recommend antibiotics at this time. He would like to see you so his office is going to call you to arrange a follow- up appointment. I want you to follow-up with primary care on Saturday regarding blood pressure and blood pressure medications. Please follow-up with urology?Dr. De Los Santos as discussed Coding Level of Care Code ED Doweling Machine Operator for Robert Perry
== END 2024-04-18 18:00 | disposition home or self-care (01) ==
PROVIDERS: Emergency Medicine; Emergency Provider Nurse Practitioner; PCP Nurse Practitioner Family
DX: R31.9 Hematuria, unspecified (principal); Z85.46 Personal history of malignant neoplasm of prostate; Z79.82 Long term (current) use of aspirin; E78.2 Mixed hyperlipidemia; I10 Essential (primary) hypertension
CPT/HCPCS: 36415; 80053; 81001; 85025; 87086; 99283

== ENCOUNTER → 2024-10-13 14:52 | Outpatient (BNVA) | payer MEDICARE, OTHER, SELFPAY | PROVIDERS: PCP Nurse Practitioner Family; Visit Provider Internal Medicine Cardiovascular Disease | DX: I48.91 Unspecified atrial fibrillation (principal); Z95.0 Presence of cardiac pacemaker; I10 Essential (primary) hypertension; E78.2 Mixed hyperlipidemia; R94.39 Abnormal result of other cardiovascular function study; I49.8 Other specified cardiac arrhythmias | CPT/HCPCS: 99214 ==

== ENCOUNTER → 2024-11-18 11:16 | Outpatient (BNVA) | payer MEDICARE, OTHER, SELFPAY | PROVIDERS: PCP Nurse Practitioner Family; Visit Provider Internal Medicine | DX: Z45.018 Encounter for adjustment and management of other part of cardiac pacemaker (principal) | CPT/HCPCS: 93296 ==

== ENCOUNTER 2024-12-23 13:00 | Day surgery (SDC) | payer MEDICARE, OTHER, SELFPAY ==
[2024-12-23] VITALS (12 sets, daily range): BP systolic 109–152; BP diastolic 73–93; PULSE 69–85; RESP 16–20; TEMP 36.4; O2SAT 98–100
--- OUTSIDE RECORDS SUMMARY | 2024-12-23 13:06 | XMS_ITS | Encounter Summary ---
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); Ulcer of Ankle (CMS/HCC) Social History Tobacco Use Types Packs/Day Years Used Date Smoking Tobacco: Never Assessed Sex and Gender Information Value Date Recorded Sex Assigned at Not on file 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 FINDINGS: Doppler venous of the left lower extremity demonstrates greaterthan 4 seconds of reflux in the common femoral, greater saphenous,saphenofemoral junction. Mild reflux is noted at the lesser saphenousjunction. There is reflux associated with anterolateral posterior arch anddorsal venous arch branches as well as Smith core finisher and a first levelCockett core finisher. Imaging demonstrates no evidence of deep orsuperficial vein thrombosis. The greater saphenous is 4.2 mm in diameter 1cm below the saphenofemoral junction. It is 3.3 at the level of the knee.It is greater than 5 mm in depth at the level of the knee. Varicosebranches are noted in the posterior medial thigh associated with aGiacomini branch. IMPRESSION: Left lower extremity venous exam demonstrating extensive deep andsuperficial vein reflux as described above. No areas of deep orsuperficial vein thrombosis are identified. Alphonso Stock M.D., [facility] Laboratory Electronically Signed by Alphonso Stock M.D. 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
--- OUTSIDE RECORDS SUMMARY | 2024-12-23 13:06 | XMS_ITS | Encounter Summary ---
Author Organization [facility] Address [address] [place] [address] Care Team Providers Care Computer Networking Instructor Name Role Phone Unavailable Primary Care Provider Unavailabl e Encounter Details Date Type Department Care Team (Late st Contact Info) Description 08/25/2008 Ancillary Orders [facility]- [place] [address] [place] [address] Nata Flor CNS NO ADDRESS ON FILE Social History Tobacco Use Types Packs/Day Years Used Date Smoking Tobacco: Never Assessed Sex and Gender Information Value Date Recorded Sex Assigned at Not on file 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
--- OUTSIDE RECORDS SUMMARY | 2024-12-23 13:06 | XMS_ITS | Clinical Summary ---
Author Organization [facility] Address [address] [facility] Attn: Epic Prelude ADT [place] [address] Care Team Providers Care Automation Sales Manager Name Role Phone Unavailable Primary Care Provider Unavailabl e Allergies No known active allergies Medications tamsulosin (FLOMAX) 0.4 mg capsule Take 1 capsule every day by oral route for 90 days. Active losartan-hydroCH LOROthiazide (HYZAAR) 100-25 mg tablet Take 1 tablet every day by oral route for 90 days. Active DULoxetine (CYMBALTA) 30 mg Capsule, Delayed Release(E.C.) Take 1 Capsule (30 mg) by mouth daily. 30 Capsule 06/12/2023 1:02 PM BUSHING PRESS OPERATOR 4 Active polyethylene glycol 3350 (Miralax) 17 gram/dose Powder Take 1 Scoop (17 Grams) by mouth daily. Dissolve in 8 ounces of fluid and drink entire liquid 510 Gram 06/12/2023 1:02 PM BUSHING PRESS OPERATOR 4 Active oxyCODONE (ROXICODONE) 5 mg tabletIndication s:Status post total replacement of hip, unspecified laterality Take 1 Tablet (5 mg) by mouth every 4 hours as needed for Pain, Moderate. Max Daily Amount: 30 mg 42 Tablet 06/12/2023 1:02 PM BUSHING PRESS OPERATOR 4 Active traMADoL (Ultram) 50 mg tabletIndication s:Status post total replacement of hip, unspecified laterality Take 1 Tablet (50 mg) by mouth every 6 hours as needed for Pain. 28 Tablet 06/12/2023 1:02 PM BUSHING PRESS OPERATOR 4 Active Active Problems Problem Noted Date Diagnosed Date Primary osteoarthritis of right hip 06/05/2023 Preoperative general physical examination 2023 Longstanding persistent atrial fibrillation 05/10 Primary hypertension 06/05/2023 Benign prostatic hyperplasia with lower urinary tract symptoms 06/05/2023 Varicose veins of leg 11/08/2008 Encounters Date Type Department Care Team Description 12/22/2024 External Device Data [facility] ABSTRACTION Provider, Abstract 11/25/2024 External Device Data [facility] ABSTRACTION Provider, Abstract 11/24/2024 External Device Data [facility] ABSTRACTION Provider, Abstract 11/19/2024 Telephone [place] [facility] [address] [id number] Jermain Coburn MD Question 11/11/2024 External Device Data [facility] ABSTRACTION Provider, Abstract 11/10/2024 External Device Data [facility]STRACTION Provider, Abstract 10/21/2024 External Device Data [facility] ABSTRACTION Provider, Abstract 10/20/2024 External Device Data [facility]STRACTION Provider, Abstract 09/22/2024 External Device Data [facility]STRACTION Provider, Abstract from Last 3 Months Family History Medical History Relation Name Comments Heart Disease Brother Cancer Sister 1 Breast Cancer Sister 2 Relation Name Status Comments Brother Sister 1 Sister 2 Social History Tobacco Use Types Packs/Day Years Used Date Smoking Tobacco: Never Smokeless Tobacco: Never Tobacco Cessation:Counseling Given: Not Answered Alcohol Use Standard Drinks/Week Comments Never 0 (1 standard drink = 0.6 oz pur e alcohol) Feeling Safe Answer Date Recorded Are you in a relationship wi th someone who hurts you emotionally and/or physically? No 06/11/2023 Food Insecurity Answer Date Recorded Social/Environmental Concerns No concerns Transportation Needs Answer Date Record ed Social/Environmental Concerns No concerns Housing Stability Answer Date Recorded Social/Environmental Concerns No concerns Utility Needs Answer Date Recorded Social/Environmental Concerns No concerns Sex and Gender Information Value Date Recorded Sex Assigned at Not on file Legal Sex Male 6:45 AM BUSHING PRESS OPERATOR Gender Identity Not on file Sexual Orientation Not on file Last Filed Vital Signs Vital Sign Reading Time Taken Comments Blood Pressure 156/80 06/11/2024 11:32 AM BUSHING PRESS OPERATOR Pulse 58 06/12/2023 1:03 PM BUSHING PRESS OPERATOR Temperature 36.7 C (98 F) 06/12/2023 1:03 PM BUSHING PRESS OPERATOR Respiratory Rate 16 06/12/2023 1:03 PM BUSHING PRESS OPERATOR Oxygen Saturation 98% 06/12/2023 1:03 PM BUSHING PRESS OPERATOR Inhaled Oxygen Concentration - - Weight 71.2 kg (157 lb) 06/11/2024 11:32 AM BUSHING PRESS OPERATOR Height 172.7 cm (5' 8 ) 06/11/2024 11:32 AM BUSHING PRESS OPERATOR Body Mass Index 23.87 06/11/2024 11:32 AM BUSHING PRESS OPERATOR Plan of Treatment Health Maintenance Due Date Last Done Comments DTAP/TDAP/TD VACCINES (1 - Tdap) 10[birth year]04/1959 PNEUMOCOCCAL VACCINE 50+ YEA RS (1 of 2 - PCV) 10/04/1959 ZOSTER VACCINE (2 of 3) 07/10/2012 05/15/2012 RSV VACCINE (60+ or ) (1 - 1-dose 75+ series) 10/04/2015 INFLUENZA VACCINE (#1) 2024 , 01/11/2023, 01/12/2022, Additional history exists COVID-19 Vaccine (2024-2 6 season) 2024 01/31/2022, 02/28/2021, 06/03/2020, Additional history exists Medical Devices Implanted Type Area Bitumastic Applier Device Identifier Shelf Expiration Date Model / Serial / Lot Stem Fem Actis Colr Std Sz4 1010-11-040 - [id number] Implanted:Qty: 1 on 06/11/2023 by Jermain Coburn MD at [facility] Hip Right: Hip [employer] [id number] 04/07/20330-11-0 40 / / [id number] Emphasys Acetabular Shell 52mm Implanted:Qty: 1 on 06/11/2023 by Jermain Coburn MD at [facility] Right: Hip 05/08/2033 [id number] 0-52-300 / / [id number] Emphasys 52mm 40mm Poly Liner Implanted:Qty: 1 on 06/11/2023 by Jermain Coburn MD at [facility] Right: Hip 04/07/2028 [id number] 2-52-040 / / [id number] Articul/Varun Femoral Head 40mm +1.5 Implanted:Qty: 1 on 06/11/2023 by Jermain Coburn MD at [facility] Right: Hip 05/08/2033 [id number] [id number] / / [id number] Insurance MEDICARE PART A AND B [employer] MEDICARE SUPP AESSI RX [employer] Medicare Part D Advance Directives For more information, please contact: [phone] * Full Code (Latest Code Status on File) Date Activated Date Inactivated Comments 06/11/2023 5:36 PM 06/12/2023 3:32 PM
--- OUTSIDE RECORDS SUMMARY | 2024-12-23 13:06 | XMS_ITS | Encounter Summary ---
Author Organization [facility] Address [address] [place] [address] Care Team Providers Care Consumer Marketing Analyst Name Role Phone Unavailable Primary Care Provider Unavailabl e Encounter Details Date Type Department Care Team (Latest Contact Info) Description 08/11/2008 Ancillary Orders [facility]- [place] [address] [place] [address] Nata Flor CNS NO ADDRESS ON FILE Varicose Veins of Lower Extremities with Other Complications Social History Tobacco Use Types Packs/Day Years Used Date Smoking Tobacco: Never Assessed Sex and Gender Information Value Date Recorded Sex Assigned at Not on file 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
--- OUTSIDE RECORDS SUMMARY | 2024-12-23 13:06 | XMS_ITS | Encounter Summary ---
Author Organization [facility] Address [address] [place] [address] Care Team Providers Care Passport Support Manager Name Role Phone Unavailable Primary Care Provider Unavailabl e Encounter Details Date Type Department Care Team (Late st Contact Info) Description 12/22/2024 External Device Data [facility] ABSTRACTION Provider, Abstract NO ADDRESS ON FILE Social History Tobacco Use Types Packs/Day Years Used Date Smoking Tobacco: Never Smokeless Tobacco: Never Alcohol Use Standard Drinks/Week Comments Never 0 [...] on file Legal Sex Male 6:45 AM CATHODE BUILDER Gender Identity Not on file Sexual Orientation Not on file documented as of this encounter Plan of Treatment Not on file documented as of this encounter Visit Diagnoses Not on filedocumented in this encounter
--- OUTSIDE RECORDS SUMMARY | 2024-12-23 13:06 | XMS_ITS | Clinical Summary ---
Author Organization [facility] Address [address] [place] [address] Care Team Providers Care Truck Chauffeur Name Role Phone Unavailable Primary Care Provider Unavailabl e Allergies No known active allergies Medications tamsulosin SR 24 hour (FLOMAX) 0.4 mg Oral Cp24 Take 0.4 mg by mouth daily. Active VALSARTAN (DIOVAN PO) Take by mouth. Active aspirin (DENIS) 81 mg Oral Tab Take 81 mg by mouth daily. Active CALCIUM CARBONATE/VITAMI N D3 (CALCIUM + D PO) Take by mouth. Active MULTIVITAMINS (MULTIVITAMIN PO) Take by mouth. 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
--- NOTE | 2024-12-23 14:02 | ED_ITS ---
HPI - General Adult 2 General: Chief complaint: Airway/Esophagus Foreign Body Stated complaint: having trouble swollowing Time Seen by Provider: 12/23/24 13:43 History of Present Illness: 84-year-old male presents to the emergen cy room complaining of difficulty swallowing. He is intermittently had difficulty with swallowing for the last 5 years yesterday after eating breakfast he states he was not able to swallow any solids or even liquids without them coming back up. Since then it has persisted he still has the same problem today he is denying any chest pain. No shortness of breath no fever sweats or chills denies any hematemesis or coffee-ground emesis. He has had EGDs in the past. Associated symptoms: Deny chest pain, dyspnea or rash Related Data Home Medications ?Medication ?Instructions ?Recorded ?Confirmed multivitamin 1 tab PO DAILY 05/19/1902/06 tamsulosin 0.4 mg capsule (Flomax) 0.4 mg PO .every ot her day 07/21/20 02/25/24 calcium phosphate-vitamin D3 600 1 tab PO 1XD 01/29/22 02/25/24 mg-125 unit tablet aspirin 81 mg tablet,delayed 81 mg PO DAILY 08/20/23 1 04/26/23 release losartan 100 0.5 tab PO DAILY 09/07/24 mg-hydrochlorothiazide 25 mg tablet Previous Rx's ?Medication ?Instructions ?Recorded triamcinolone acetonide 0.1 % 1 applic topical BID #80 grams 01/29/22 topical ointment amlodipine 2.5 mg tablet 2.5 mg PO DAILY HTN 30 days #90 02/25/24 tabs Allergies Allergy/AdvReac Type Severity Reaction Status Date / Time No Known Allergies Allergy Verified 12/23/24 13:11 Review of Systems 2 Const: Denies: fever(s) or chills Card: Denies: chest pain Resp: Denies: dyspnea GI: Denies: abdominal pain : Denies: dysuria, urinary frequency or urinary urgency Musc: Denies: neck pain or back pain Skin/Breast: Denies: rash PFSH ED 2 PFSH: Medical History Rosacea Seborrheic keratosis Parotitis Abnormal nuclear stress test Mixed hyperlipidemia Benign essential HTN Atrial fibrillation by electrocardiography The patient has decided not to take the oral anticoagulation. He was prescribed Eliquis but did not take it. Made him feel very tired and weak Vertigo GERD (gastroesophageal reflux disease) Dysphagia Surgical History History of appendectomy History of cataract extraction Hx of tonsillectomy Hx of cholecystectomy Family History Brother CAD (coronary artery disease) Mother CAD (coronary artery disease) Sister Cancer Diabetes Denies family history of Clotting disorder Dementia Chronic kidney disease (CKD) Suicide Anesthesia complication Bleeding disorder Lung disease Stroke Social History Smoking and tobacco/nicotine status: never used tobacco/nicotine Alcohol intake: never Substance/Drug Use: never Physical Exam 2 Const: GENERAL APPEARANCE: cooperative ORIENTATION/CONSCIOUSNESS: Yes awake, Yes oriented to person, Yes oriented to place and Yes oriented to time HENMT: COMMON NORMALS: normocephalic, atraumatic and hearing grossly normal bilaterally HEAD & SCALP: normocephalic and atraumatic Resp: COMMON NORMALS: normal respiratory effort, No retractions, No use of accessory muscles and clear to auscultation bilaterally AUSCULTATION: clear to auscultation bilaterally Cardio: COMMON NORMALS: regular rate, regular rhythm and No murmurs present (Cardio) RATE: regular rate RHYTHM: regular rhythm GI: COMMON NORMALS: Soft to palpation and No hepatosplenomegaly present A USCULTATION: Yes normoactive bowel sounds PALPATION: Yes Soft to palpation, No Tenderness to palpation present (GI), No Guarding due to palpation present (GI) and Yes No hepatosplenomegaly present Extremity: COMMON NORMALS: normal to inspection, capillary refill normal, no clubbing, cyanosis or edema, no calf tenderness and no pedal edema Neuro: SENSORIUM/ORIENTATION: Yes oriented to person, Yes oriented to place and Yes oriented to time Skin: COMMON NORMALS: no rashes or lesions noted GENERAL SKIN EXAM: no rashes or lesions noted Course 2 Vital Signs: Vital signs: Vital Signs Temperature 97.5 F L 12/23/24 13:05 Pulse Rate 72 12/23/24 14:34 Respiratory Rate 16 12/23/24 14:12 Blood Pressure 151/93 12/23/24 14:12 Pulse Oximetry 98 12/23/24 14:34 Oxygen Delivery Me thod Room Air 12/23/24 14:34 MDM - General Adult Medical Decision Making Esophageal food impaction discussed with on-call surgery. Dr. Delgado will take him to the GI lab for EGD. Glucagon was given with no results. Laboratory tests EKG and chest x-ray otherwise unremarkable Lab Data 12/23/24 14:13 12/23/24 14:13 Radiology Impressions Chest X-Ray 12/23/24 14:07 IMPRESSION: No acute chest abnormality. No findings of esophageal foreign body. Laboratory Results WBC 6.19 10^3/uL (3.29-11.43) 12/23/24 14:13 RBC 4.97 10^6/uL (3.85-5.65) 12/23/24 14:13 Hgb 14.80 g/dL (11.27-16.99) 12/23/24 14:13 Hct 44.7 % (37-53) 12/23/24 14:13 MCV 89.9 fl (82-101) 12/23/24 14:13 MCH 29.8 pg (27-33) 12/23/24 14:13 MCHC 33.1 g/dL (30-55) 12/23/24 14:13 RDW 13.1 % (12.1-15.1) 12/23/24 14:13 Plt Count 132 10^3/cmm (157-399) L 12/23/24 14:13 MPV 11.3 fL (7.4-10.4) H 12/23/24 14:13 Neut % (Auto) 65.4 % 12/23/24 14:13 Lymph % (Auto) 21.8 % 12/23/24 14:13 [place] % (Auto) 7.8 % 12/23/24 14:13 Eos % (Auto) 3.9 % 12/23/24 14:13 Baso % (Auto) 0.8 % 12/23/24 14:13 Neut # (Auto) 4.05 10^3/uL (1.8-7.7) 12/23/24 14:13 Lymph # (Auto) 1.4 10^3/uL (0.8-4.8) 12/23/24 14:13 [place] # (Auto) 0.5 10^3/uL (0.2-0.9) 12/23/24 14:13 Eos # (Auto) 0.2 10^3/uL (0.0-0.8) 12/23/24 14:13 Baso # (Auto) 0.1 10^3/uL (0.0-0.1) 12/23/24 14:13 Nucleated RBC % (auto) 0 % 12/23/24 14:13 Nucleated RBCs # 0.0 /100WBC 12/23/24 14:13 Sodium 143 mmol/L (136-145) 12/23/24 14:13 Potassium 4.3 mmol/L (3.5-5.1) 12/23/24 14:13 Chloride 104 mmol/L (98-107) 12/23/24 14:13 Carbon Dioxide 27 mmol/L (22-29) 12/23/24 14:13 Anion Gap 16.3 (5-19) 12/23/24 14:13 BUN 19 mg/dL (8-23) 12/23/24 14:13 Creatinine 0.9 mg/dL (0.7-1.2) 12/23/24 14:13 GFR Calculation Not Reportable 12/23/24 14:13 Glucose 94 mg/dL (65-115) 12/23/24 14:13 Calculated Osmolality 298 mOsm/kg (285-295) H 12/23/24 14:13 Calcium 9.8 mg/dL (8.5-10.5) 12/23/24 14:13 Total Bilirubin 1.6 mg/dL (0.15-1.2) H 12/23/24 14:13 AST 23 U/L (0-40) 12/23/24 14:13 ALT 16 U/L (0-41) 12/23/24 14:13 Alkaline Phosphatase 54 U/L (40-130) 12/23/24 14:13 Total Protein 7.2 g/dL (6.6-8.7) 12/23/24 14:13 Albumin 4.4 g/dL (3.5-5.2) 12/23/24 14:13 Globulin 2.8 g/dL (1.3-4.6) 12/23/24 14:13 All radiology interpretation(s) finalized by discharge EKG Data EKG 1: Interpretation: EKG 12/23/2024 1417 paced rhythm no further interpretation. Rate of 73 QTc 463 compared to EKG 02/25/2024 Rhythm is now paced, previous rhythm slow A-fib Computer generated interpretation: Chest X-Ray 12/23/24 14:07 IMPRESSION: No acute chest abnormality. No findings of esophageal foreign body. Discharge Plan Discharge Patient Disposition: Placed in Observation Clinical Impression: Esophageal obstruction due to food impaction Coding Level of Care Code ED Supervisor [employer] for [employer]
--- NOTE | 2024-12-23 14:07 | XR_ITS ---
WS: [id number] XR chest 1V portable [id number] REASON FOR EXAM: esophageal foreign body FINDINGS: No previous examination for comparison. Small device overlying the left mid chest. Presumed cardiac device. The heart and mediastinum are within normal limits. No radiopaque foreign body is identified within the mediastinum. No mediastinal air. No acute pulmonary parenchymal or pleural abnormality is identified. 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 Moderate degenerative spondylosis in the thoracic spine. Complex metallic foreign body overlies the lateral extreme right upper quadrant. This may be extraneous. XR/XR chest 1V portable [id number] IMPRESSION: No acute chest abnormality. No findings of esophageal foreign body.
[2024-12-23] MEDS: glucagon 1 mg/mL KIT 1 mL IVP (14:17)
--- NOTE | 2024-12-23 14:17 | ECG_ITS ---
[employer] Test Date: 2024-12-23 Pat Name: Martín Coburn Department: Room: Gender: Male Executive Sales Assistant: : 1940 Requested By: Dario Kearns Order Number: [id number] Lauren MD: Anival Salgado M.D. Measurements Intervals [place] Rate: 73 P: 0 MD: 0 QRS: 103 QRSD: 162 T: 54 QT: 418 QTc: 463 Interpretive Statements ELECTRONIC VENTRICULAR PACEMAKER ABNORMAL RHYTHM ECG Compared to ECG 02/25/2024 14:58:14 Left-axis deviation no longer present Myocardial infarct finding no longer present Electronically Signed On 12-23-2024 23:29:21 CDT by Anival Salgado M.D. [email or web address]
[2024-12-23 14:28] LABS: Hematocrit 44.7 % (37-53); Hemoglobin 14.80 g/dL (11.27-16.99); Mean Corpuscular HGB Conc 33.1 g/dL (30-55); Mean Corpuscular Hemoglobin 29.8 pg (27-33); Mean Corpuscular Volume 89.9 fl (82-101); Nucleated Red Blood Cells % 0 %; Platelet Count 132 10^3/cmm (157-399); Red Blood Count 4.97 10^6/uL (3.85-5.65); White Blood Count 6.19 10^3/uL (3.29-11.43)
--- NOTE | 2024-12-23 14:33 | P.HP_ITS ---
Providers/Chief Complaint 2 Primary Care Provider: KERRY Chavez Chief Complaint: having trouble swollowing History of Present Illness Martín Coburn is a 84 year old male who presents with a suspected esophageal food bolus. Patient states that for years he has been having difficulty swallowing and getting food to go down. Since this morning after having breakfast he has been unable to swallow anything everything seems to come back up and therefore he decided to present to the ER. No abdominal pain no chest pain no other concerning findings Review of Systems 2 General: Reports: 10 or more systems reviewed and unremarkable except in HPI and below Medications/Allergies Home Medications ?Medication ?Instructions ?Recorded ?Confirmed ?Last Taken ?Type multivitamin 1 tab PO DAILY 05/19/1902/0603/07/23 History tamsulosin 0.4 mg capsule (Flomax) 0.4 mg PO .every ot her day 07/21/20 02/25/24 03/07/23 History calcium phosphate-vitamin D3 600 1 tab PO 1XD 01/29/22 02/25/24 03/07/23 History mg-125 unit tablet triamcinolone acetonide 0.1 % 1 applic topical BID #80 grams 01/29/22 02/25/24 03/06/23 Rx topical ointment aspirin 81 mg tablet,delayed 81 mg PO DAILY 08/20/23 1 04/26/23 Unknown History release amlodipine 2.5 mg tablet 2.5 mg PO DAILY HTN 30 days #90 02/25/24 02/25/24 Unknown Rx tabs losartan 100 0.5 tab PO DAILY 09/07/24 U nknown History mg-hydrochlorothiazide 25 mg tablet Allergies Allergy/AdvReac Type Severity Reaction Status Date / Time No Known Allergies Allergy Verified 12/23/24 13:11 PFSH Acute 2 PFSH: Medical History (Updated 12/23/24 @ 14:37 by Nico Delgado MD) Rosacea Seborrheic keratosis Parotitis Abnormal nuclear stress test Mixed hyperlipidemia Benign essential HTN Atrial fibrillation by electrocardiography The patient has decided not to take the oral anticoagulation. He was prescribed Eliquis but did not take it. Made him feel very tired and weak Vertigo GERD (gastroesophageal reflux disease) Dysphagia Surgical History History of appendectomy History of cataract extraction Hx of tonsillectomy Hx of cholecystectomy Family History Brother CAD (coronary artery disease) Mother CAD (coronary artery disease) Sister Cancer Diabetes Denies family history of Clotting disorder Dementia Chronic kidney disease (CKD) Suicide Anesthesia complication Bleeding disorder Lung disease Stroke Social History Smoking and tobacco/nicotine status: never used tobacco/nicotine Alcohol intake: never Substance/Drug Use: never Vitals/I&O/Wt Last Vital Signs Temp 97.5 F L 12/23/24 13:05 Pulse 75 12/23/24 14:12 Resp 16 12/23/24 14:12 BP 151/93 12/23/24 14:12 Pulse Ox 100 12/23/24 14:12 O2 Del Method Room Air 12/23/24 14:12 Weight last 48 hrs Weight 138 lb Physical Exam 2 Narrative: Benign abdominal exam abdomen soft and nontender. Data 12/23/24 14:13 12/23/24 14:13 A&P Assessment and plan 1. Esophageal foreign body: Plan: After complete history physical examination and review of all available clinical data I do have decided to offer the patient an upper endoscopy with possible foreign body extraction and possible dilation. I have discussed all recent benefits of the procedure including the risk of perforation need for additional interventions, inability to advance the scope towards the stomach, injury to soft tissue of the mouth and pharynx. Patient shows understanding agrees with the plan. PDMP PDMP Reviewed: Not Reviewed Attestations 2 Medical Necessity Statement*: For discharge after endoscopy Coding Level of Care Code Acute Code for Chg Fwd Diagnoses Esophageal foreign body T18.108A
[2024-12-23 14:42] LABS: Alanine Aminotransferase 16 U/L (0-41); Albumin Level 4.4 g/dL (3.5-5.2); Alkaline Phosphatase 54 U/L (40-130); Anion Gap 16.3 (5-19); Aspartate Amino Transferase 23 U/L (0-40); Blood Urea Nitrogen 19 mg/dL (8-23); Calcium 9.8 mg/dL (8.5-10.5); Carbon Dioxide 27 mmol/L (22-29); Chloride 104 mmol/L (98-107); Creatinine Clr Calc Pharmacy 57.1048; Globulin 2.8 g/dL (1.3-4.6); Glucose 94 mg/dL (65-115); Osmolality Calculated 298 mOsm/kg (285-295); Potassium 4.3 mmol/L (3.5-5.1); Sodium 143 mmol/L (136-145); Total Protein 7.2 g/dL (6.6-8.7)
== END 2024-12-23 16:45 | disposition home or self-care (01) ==
LOC: ER 14:29 → GILAB 14:46
PROVIDERS: Emergency Provider Family Medicine; PCP Nurse Practitioner Family; Visit Provider Surgery
PROC: 0DJ08ZZ Inspection of Upper Intestinal Tract, Via Natural or Artificial Opening Endoscopic (ICD-10-PCS; principal; 2024-12-23 14:45)
DX: T18.108A Unspecified foreign body in esophagus causing other injury, initial encounter (principal); W44.F3XA Food entering into or through a natural orifice, initial encounter; K29.50 Unspecified chronic gastritis without bleeding; Z79.82 Long term (current) use of aspirin; E78.2 Mixed hyperlipidemia; I10 Essential (primary) hypertension; K21.9 Gastro-esophageal reflux disease without esophagitis; R13.10 Dysphagia, unspecified
CPT/HCPCS: 43239; 43247; 71045; 80053; 85025; 88305; 88342; 93005; J0330; J1610; J2704; J7030

== ENCOUNTER → 2025-01-05 13:58 | Outpatient (BNVA) | payer MEDICARE, OTHER, SELFPAY | PROVIDERS: PCP Nurse Practitioner Family; Visit Provider Surgery | DX: Z09 Encounter for follow-up examination after completed treatment for conditions other than malignant neoplasm (principal) | CPT/HCPCS: 99213 ==

== ENCOUNTER 2025-02-08 13:16 | Outpatient (CLI) | payer MEDICARE, OTHER, SELFPAY ==
--- NOTE | 2025-02-08 13:23 | CT_ITS ---
WS: [id number] CT ABDOMEN AND PELVIS NONCONTRAST HISTORY: LEFT INGUINAL HERNIA TECHNIQUE: Imaging performed through the abdomen and pelvis. Coronal and sagittal reformats are submitted. All CT scans at [facility] use at least one of these dose optimization techniques: automated exposure control; mA and/or kV adjustment per patient size (includes targeted exams where dose is matched to clinical indication); or iterative reconstruction. DLP: 258.27 mGy.cm COMPARISON: None available. Lower thorax: Lung bases are clear. Visualized heart is normal. No hiatal hernia. Liver: Normal size liver. Low-attenuation mass measures 7.5 x 7.2 cm in the LEFT lobe with low Hounsfield units. No intrahepatic duct dilatation. Gallbladder: Prior cholecystectomy. Pancreas: Normal size and attenuation. Normal pancreatic duct. No pancreatitis or mass. Spleen: Normal. Adrenal glands: Normal. No mass. Right kidney: Normal size RIGHT kidney. Nonobstructing calcification in the lower pole measures 11 x 7 mm. High density mass exophytic from the RIGHT lateral kidney measures 1.7 x 1.5 cm. Left kidney: Normal size kidney. Low-attenuation mass superior pole 2.3 x 3.3 cm. Nonobstructing calcification lower pole 1.0 x 0.9 cm. Aorta: Mild atherosclerosis abdominal aorta with no aneurysm. No free fluid, intraperitoneal air or significant lymphadenopathy. GI tract: Stomach is slightly distended. No obstruction. No small bowel obstruction. Moderate diffuse constipation. Prior appendectomy. Minimal diverticulosis. Abdominal wall: Negative. No hernia. Pelvis: Fat-containing LEFT inguinal hernia. Tiny RIGHT inguinal hernia. No adenopathy or ascites. Prostate seeds noted. Urinary bladder is not distended. Osseous structures: Prior RIGHT hip arthroplasty. 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 CT/CT abdomen pelvis wo con [id number] IMPRESSION: 1. Moderate-sized LEFT inguinal hernia contains fat only. 2. Bilateral nonobstructing renal calculi. 3. High density mass exophytic from the RIGHT lateral kidney measures 1.7 x 1. 5 cm. Neoplasm needs to be excluded. Recommend additional evaluation of the kid neys. Renal mass CT protocol recommended. 4. LEFT renal cyst. 5. Low-attenuation mass in the LEFT kidney is probably a cyst. This also can b e evaluated on follow-up renal mass CT protocol. 6. Prior cholecystectomy. 7. Very tiny RIGHT inguinal hernia. 8. Prior appendectomy.
== END 2025-02-08 13:17 | disposition home or self-care (01) ==
LOC: RAD 13:17
PROVIDERS: PCP Nurse Practitioner Family; Visit Provider Nurse Practitioner Family
DX: K40.90 Unilateral inguinal hernia, without obstruction or gangrene, not specified as recurrent (principal); R16.0 Hepatomegaly, not elsewhere classified; Z90.49 Acquired absence of other specified parts of digestive tract; N28.89 Other specified disorders of kidney and ureter; Z90.89 Acquired absence of other organs; K59.00 Constipation, unspecified; K57.90 Diverticulosis of intestine, part unspecified, without perforation or abscess without bleeding; N28.1 Cyst of kidney, acquired
CPT/HCPCS: 74176

== ENCOUNTER 2025-03-02 12:41 | Outpatient (CLI) | payer MEDICARE, OTHER, SELFPAY ==
--- NOTE | 2025-03-02 12:51 | CTR_ITS ---
PROCEDURE INFORMATION: Exam: CT Abdomen Without And With Contrast, Kidneys Exam date and time: 03/02/2025 1:24 PM Age: 84 years old Clinical indication: Condition or disease; Kidney or ureter condition; Other: Renal mass; Primary cancer: Prostate; Prior surgery; Surgery date: 6+ months; Surgery type: Gb; Additional info: RT renal mass TECHNIQUE: Imaging protocol: Computed tomography images of the abdomen without and with intravenous contrast. 3D rendering (Not supervised by radiologist): MIP and/or 3D reconstructed images were created by the technologist. Radiation optimization: All CT scans at this facility use at least one of these dose optimization techniques: automated exposure control; mA and/or kV adjustment per patient size (includes targeted exams where dose is matched to clinical indication); or iterative reconstruction. Contrast material: OMNI 350; Contrast volume: 100 ml; Contrast route: INTRAVENOUS (IV); COMPARISON: CT abdomen pelvis wo con [id number] 02/08/2025 1:44 PM RADIATION DOSE METRICS: Total DLP (mGy-cm): 700.08 FINDINGS: Liver: Stable 8.1 cm hepatic cyst in the lateral segment left liver. Gallbladder and biliary ducts: Normal. No calcified stones. No ductal dilation. Pancreas: Normal. No ductal dilation. Spleen: Stable one or more accessory splenules. Adrenal glands: Normal. No mass. Kidneys and ureters: Stable bilateral nonobstructing renal calyceal stones. Stable simple left renal cyst measuring > 1.0 cm. One or more focal cortical defects in the left kidney, representing sequela from previous infection or infarction. 1.8 cm exophytic lesion lower pole right kidney measuring 54 Hounsfield units on images without contrast and 62 Hounsfield units on images with contrast consistent with pseudo enhancement of a hemorrhagic cyst. No followup needed. Stomach and bowel: Normal. No obstruction. No mucosal thickening. Intraperitoneal space: Unremarkable. No free air. No significant fluid collection. Lymph nodes: Shotty central mesenteric lymphadenopathy which may be reactive versus neoplastic. Vasculature: Unremarkable. No abdominal aortic aneurysm. Bones/joints: Unremarkable. No acute fracture. No dislocation. Soft tissues: Lucila mesentery sign with central mesenteric fat edema and extensive differential diagnosis including but not limited to pancreatitis, portal hypertension, infectious process, autoimmune/allergic process or neoplastic process. Other findings: Bilateral nonobstructing renal calyceal stones. CT/CT abdomen wo/w con [id number] IMPRESSION: 1. Stable 8.1 cm hepatic cyst in the lateral segment left liver. 2. Lucila mesentery sign with central mesenteric fat edema and extensive differential diagnosis including but not limited to pancreatitis, portal hypertension, infectious process, autoimmune/allergic process or neoplastic process. 3. Shotty central mesenteric lymphadenopathy which may be reactive versus neoplastic. 4. Stable simple left renal cyst measuring > 1.0 cm. 5. One or more focal cortical defects in the left kidney, representing sequela from previous infection or infarction. 6. 1.8 cm exophytic lesion lower pole right kidney measuring 54 Hounsfield units on images without contrast and 62 Hounsfield units on images with contrast consistent with pseudo enhancement of a hemorrhagic cyst. No followup needed.
[2025-03-02 13:19] LABS: Blood Urea Nitrogen 15 mg/dL (8-23)
[2025-03-02] MEDS: iohexol 350 mg/mL 500 mL Btl (per mL) IV (13:27)
== END 2025-03-02 12:42 | disposition home or self-care (01) ==
LOC: RAD 12:42
PROVIDERS: PCP Nurse Practitioner Family; Visit Provider Nurse Practitioner Family
DX: N28.89 Other specified disorders of kidney and ureter (principal); K76.89 Other specified diseases of liver; K65.4 Sclerosing mesenteritis; R93.5 Abnormal findings on diagnostic imaging of other abdominal regions, including retroperitoneum; I88.0 Nonspecific mesenteric lymphadenitis; N28.1 Cyst of kidney, acquired
CPT/HCPCS: 74170; 82565; 84520